=== PATIENT | male | born 1965 | race Caucasian/White ===

== ENCOUNTER → 2019-12-08 | Outpatient (CLI) | payer OTHER | END | disposition home or self-care (01) | LOC: LAB 09:09 | DX: R79.89 Other specified abnormal findings of blood chemistry (principal) ==

== ENCOUNTER 2021-06-27 07:51 | Inpatient (IN) | payer OTHER ==
[2021-06-27] VITALS (8 sets, daily range): BP systolic 122–163; BP diastolic 50–86
[~2021-06-27] VITALS: Ht 182.9 cm; Wt 89.8 kg
[2021-06-27 08:45] LABS: BASO % 0.2 % (0.0-1.0); EOS # 0.1 10*3/uL (0.0-0.4); EOS % 0.7 % (1.0-4.0); HEMATOCRIT 38.3 % (42.0-52.0); LYMPH # 0.7 10*3/uL (1.3-4.4); LYMPH % 8.2 % (27.0-41.0); MEAN CELL VOLUME 88.5 fl (80.0-94.0); MEAN CORPUSCULAR HGB 31.2 pg (27.0-31.0); MEAN CORPUSCULAR HGB CONC 35.2 g/dl (33.0-37.0); MEAN PLATELET VOLUME 9.2 fl (9.6-12.3); MONO # 1.3 10*3/uL (0.1-1.0); NEUT # 6.5 10*3/uL (2.3-7.9); NEUT % 75.1 % (47.0-73.0); PLATELET COUNT AUTOMATED 190 10*3/uL (130-400); RED BLOOD COUNT 4.33 10*6/uL (4.50-5.90); RED CELL DISTRI WIDTH 12.2 % (0-14.5); WHITE BLOOD COUNT 8.6 10*3/uL (4.8-10.8)
[2021-06-27 08:59] LABS: ALKALINE PHOSPHATASE 108 U/L (45-117); BUN 17 mg/dl (7-24); CHLORIDE 103 mmol/L (98-107); CREATININE 0.92 mg/dL (0.70-1.30); LIPASE 51 U/L (73-393); POTASSIUM 3.3 mmol/L (3.5-5.1); SGOT/AST 6 IU/L (3-35); SGPT/ALT 16 U/L (12-78); SODIUM 135 mmol/L (136-145); TOTAL PROTEIN 7.4 gm/dL (6.4-8.2)
[2021-06-27 09:02] LABS: TROPONIN I < 0.015 ng/ml (<0.045)
[2021-06-28] VITALS: BP 144/62
[2021-06-28 06:16] LABS: BASO % 0.3 % (0.0-1.0); EOS # 0.1 10*3/uL (0.0-0.4); EOS % 0.7 % (1.0-4.0); HEMATOCRIT 30.5 % (42.0-52.0); LYMPH # 1.2 10*3/uL (1.3-4.4); LYMPH % 17.5 % (27.0-41.0); MEAN CELL VOLUME 89.7 fl (80.0-94.0); MEAN CORPUSCULAR HGB 31.2 pg (27.0-31.0); MEAN CORPUSCULAR HGB CONC 34.8 g/dl (33.0-37.0); MEAN PLATELET VOLUME 9.2 fl (9.6-12.3); MONO # 0.9 10*3/uL (0.1-1.0); MONO % 12.7 % (3.0-9.0); NEUT # 4.6 10*3/uL (2.3-7.9); NEUT % 67.3 % (47.0-73.0); PLATELET COUNT AUTOMATED 199 10*3/uL (130-400); RED CELL DISTRI WIDTH 12.6 % (0-14.5); WHITE BLOOD COUNT 6.9 10*3/uL (4.8-10.8)
[2021-06-28 06:24] LABS: CHLORIDE 109 mmol/L (98-107); POTASSIUM 3.1 mmol/L (3.5-5.1); SODIUM 139 mmol/L (136-145)
[2021-06-28 06:36] LABS: ALBUMIN 2.1 gm/dl (3.1-4.5); ALKALINE PHOSPHATASE 82 U/L (45-117); BUN 18 mg/dl (7-24); CHOLESTEROL 112 mg/dL (<200); CREATININE 0.74 mg/dL (0.70-1.30); LDL CHOLESTEROL 56 mg/dL (9-159); SGOT/AST 11 IU/L (3-35); SGPT/ALT 15 U/L (12-78); TOTAL PROTEIN 5.9 gm/dL (6.4-8.2); TRIGLYCERIDES 205 mg/dl (<150)
[2021-06-28 08:00] VITALS: BP 119/55
[2021-06-28 12:00] VITALS: BP 123/61
[2021-06-28] MEDS ORDERED: CEPHALEXIN500 M1 PO ×3 (13:24→13:29)
[2021-06-28] MEDS ORDERED: HUMALOG100 UNIT/1 SC (13:28)
[2021-06-28] MEDS ORDERED: ONETOUCH LANCE1 EACH MC (13:28)
[2021-06-28] MEDS ORDERED: GLUCTESTSTRIP DEVI (13:28)
[2021-06-28] MEDS ORDERED: LANTUS SOL100 UNIT/1 SC (13:28)
== END 2021-06-28 14:39 | disposition home or self-care (01) | DRG 720 ==
LOC: ED 07:51 → EDHOLD 10:31 → 5E 10:31
PROVIDERS: Emergency Medicine; Internal Medicine; ADMIT Student in an Organized Health Care Education/Training Program; ATTEND Student in an Organized Health Care Education/Training Program
PROC: 0Y9D0ZZ Drainage of Left Upper Leg, Open Approach (ICD-10-PCS; principal; 2021-06-27)
DX: A41.9 Sepsis, unspecified organism (principal); L02.416 Cutaneous abscess of left lower limb; E44.0 Moderate protein-calorie malnutrition; K74.60 Unspecified cirrhosis of liver; L02.214 Cutaneous abscess of groin; I10 Essential (primary) hypertension; E87.6 Hypokalemia; R79.82 Elevated C-reactive protein (CRP); E66.9 Obesity, unspecified; B95.1 Streptococcus, group B, as the cause of diseases classified elsewhere; E11.65 Type 2 diabetes mellitus with hyperglycemia; R01.1 Cardiac murmur, unspecified; D64.9 Anemia, unspecified; R16.1 Splenomegaly, not elsewhere classified; Z88.0 Allergy status to penicillin; Z82.3 Family history of stroke; Z83.3 Family history of diabetes mellitus; Z82.49 Family history of ischemic heart disease and other diseases of the circulatory system; Z68.26 Body mass index [BMI] 26.0-26.9, adult

== ENCOUNTER → 2021-07-02 | Outpatient (CLI) | payer OTHER ==
[~2021-07-02] MED LIST: CEPHALEXIN500 M1 PO; GLUCTESTSTRIP DEVI; HUMALOG100 UNIT/1 SC; LANTUS SOL100 UNIT/1 SC; ONETOUCH LANCE1 EACH MC
== END ==
LOC: WOUNDCARE 01:25
PROVIDERS: ATTEND Surgery
DX: T81.89XA Other complications of procedures, not elsewhere classified, initial encounter (principal); L02.416 Cutaneous abscess of left lower limb; M72.6 Necrotizing fasciitis; E11.9 Type 2 diabetes mellitus without complications; I10 Essential (primary) hypertension; Z98.890 Other specified postprocedural states; Z87.891 Personal history of nicotine dependence; Y83.8 Other surgical procedures as the cause of abnormal reaction of the patient, or of later complication, without mention of misadventure at the time of the procedure; Y92.238 Other place in hospital as the place of occurrence of the external cause

== ENCOUNTER → 2021-07-04 | Outpatient (CLI) | payer OTHER | END | disposition home or self-care (01) | LOC: RAD 07:15 | PROVIDERS: ATTEND Family Medicine | DX: M50.322 Other cervical disc degeneration at C5-C6 level (principal); M50.323 Other cervical disc degeneration at C6-C7 level; M48.02 Spinal stenosis, cervical region ==

== ENCOUNTER → 2021-07-09 | Outpatient (CLI) | payer OTHER | LOC: WOUNDCARE 01:49 | PROVIDERS: ATTEND Nurse Practitioner | DX: T81.89XD Other complications of procedures, not elsewhere classified, subsequent encounter (principal); L02.416 Cutaneous abscess of left lower limb; M72.6 Necrotizing fasciitis; E11.9 Type 2 diabetes mellitus without complications; I10 Essential (primary) hypertension; Z98.890 Other specified postprocedural states; Z87.891 Personal history of nicotine dependence; Y83.8 Other surgical procedures as the cause of abnormal reaction of the patient, or of later complication, without mention of misadventure at the time of the procedure; Y92.238 Other place in hospital as the place of occurrence of the external cause ==

== ENCOUNTER → 2021-07-10 | Outpatient (CLI) | payer OTHER ==
[2021-07-10 09:08] LABS: BASO % 0.5 % (0.0-1.0); EOS # 0.1 10*3/uL (0.0-0.4); EOS % 1.8 % (1.0-4.0); HEMATOCRIT 38.3 % (42.0-52.0); LYMPH # 1.2 10*3/uL (1.3-4.4); MEAN CELL VOLUME 89.3 fl (80.0-94.0); MEAN CORPUSCULAR HGB 30.8 pg (27.0-31.0); MEAN CORPUSCULAR HGB CONC 34.5 g/dl (33.0-37.0); MEAN PLATELET VOLUME 8.6 fl (9.6-12.3); MONO # 0.3 10*3/uL (0.1-1.0); MONO % 8.5 % (3.0-9.0); NEUT # 2.2 10*3/uL (2.3-7.9); NEUT % 56.9 % (47.0-73.0); PLATELET COUNT AUTOMATED 268 10*3/uL (130-400); RED BLOOD COUNT 4.29 10*6/uL (4.50-5.90); RED CELL DISTRI WIDTH 12.7 % (0-14.5); RETICULOCYTE % 5.12 % (0.50-2.50); WHITE BLOOD COUNT 3.9 10*3/uL (4.8-10.8)
[2021-07-10 09:15] LABS: BILIRUBIN Negative (Negative); BLOOD Negative (Negative); CLARITY Clear (Clear); COLOR Yellow (Yellow); GLUCOSE 3+ (Negative); KETONE Negative (Negative); LEUKO ESTERASE Negative (Negative); NITRITE Negative (Negative); PH 6.5 (4.5-8.0); SPECIFIC GRAVITY 1.025 (1.001-1.030); UROBILINOGEN 0.2 E.U./dl (0.0-1.0)
[2021-07-10 09:24] LABS: ALBUMIN 3.1 gm/dl (3.1-4.5); ALKALINE PHOSPHATASE 93 U/L (45-117); BUN 9 mg/dl (7-24); CHLORIDE 100 mmol/L (98-107); CHOLESTEROL 177 mg/dL (<200); CREATININE 0.74 mg/dL (0.70-1.30); GAMMA GLUTAMYL TRANSPEPTIDASE 173 U/L (15-85); IRON 76 ug/dL (65-175); LDL CHOLESTEROL 62 mg/dL (9-159); POTASSIUM 3.7 mmol/L (3.5-5.1); SGOT/AST 11 IU/L (3-35); SGPT/ALT 25 U/L (12-78); SODIUM 137 mmol/L (136-145); TOTAL IRON BINDING CAPACITY 313 ug/dl (250-450); TRIGLYCERIDES 399 mg/dl (<150)
[2021-07-10 09:57] LABS: BACTERIA 1+; COARSE GRANULAR CAST 0-2
[2021-07-10 09:59] LABS: VITAMIN D, 25-HYDROXY 35.6 ng/mL (30-100)
[2021-07-10 10:00] LABS: FERRITIN 189.5 ng/mL (22.0-322.0)
== END | disposition home or self-care (01) ==
LOC: LAB 08:31
PROVIDERS: ATTEND Family Medicine
DX: R53.83 Other fatigue (principal); R79.89 Other specified abnormal findings of blood chemistry; E78.5 Hyperlipidemia, unspecified; E10.9 Type 1 diabetes mellitus without complications; E55.9 Vitamin D deficiency, unspecified

== ENCOUNTER → 2021-07-16 | Outpatient (CLI) | payer OTHER | LOC: WOUNDCARE 00:42 | PROVIDERS: ATTEND Surgery | DX: T81.89XD Other complications of procedures, not elsewhere classified, subsequent encounter (principal); L02.416 Cutaneous abscess of left lower limb; M72.6 Necrotizing fasciitis; I10 Essential (primary) hypertension; E11.9 Type 2 diabetes mellitus without complications; Z98.890 Other specified postprocedural states; Z87.891 Personal history of nicotine dependence; Y83.8 Other surgical procedures as the cause of abnormal reaction of the patient, or of later complication, without mention of misadventure at the time of the procedure ==

== ENCOUNTER → 2021-07-19 | Outpatient (CLI) | payer OTHER ==
[2021-07-20 05:06] LABS: HEPATITIS B SURFACE AB Non Reactive (.)
[2021-07-21 15:06] LABS: HEPATITIS B QNT HBV DNA not detected IU/mL (.)
== END | disposition home or self-care (01) ==
LOC: RESCLI 00:32
PROVIDERS: Student in an Organized Health Care Education/Training Program; ATTEND Internal Medicine
DX: R53.83 Other fatigue (principal); M72.6 Necrotizing fasciitis; L02.416 Cutaneous abscess of left lower limb; R20.2 Paresthesia of skin; Z12.5 Encounter for screening for malignant neoplasm of prostate; I10 Essential (primary) hypertension; E10.36 Type 1 diabetes mellitus with diabetic cataract; K74.60 Unspecified cirrhosis of liver; K59.00 Constipation, unspecified; E10.65 Type 1 diabetes mellitus with hyperglycemia; E78.1 Pure hyperglyceridemia; Z88.0 Allergy status to penicillin; Z98.890 Other specified postprocedural states; Z79.899 Other long term (current) drug therapy

== ENCOUNTER → 2021-07-23 | Outpatient (CLI) | payer OTHER | LOC: WOUNDCARE 03:27 | PROVIDERS: ATTEND Surgery | DX: T81.89XD Other complications of procedures, not elsewhere classified, subsequent encounter (principal); M72.6 Necrotizing fasciitis; L02.416 Cutaneous abscess of left lower limb; I10 Essential (primary) hypertension; E11.9 Type 2 diabetes mellitus without complications; Z98.890 Other specified postprocedural states; Z87.891 Personal history of nicotine dependence; Y83.8 Other surgical procedures as the cause of abnormal reaction of the patient, or of later complication, without mention of misadventure at the time of the procedure ==

== ENCOUNTER → 2021-07-26 | Outpatient (CLI) | payer OTHER | END | disposition home or self-care (01) | LOC: MRI 07:28 | PROVIDERS: ATTEND Family Medicine | DX: M19.011 Primary osteoarthritis, right shoulder (principal); M77.8 Other enthesopathies, not elsewhere classified ==

== ENCOUNTER → 2021-08-02 | Outpatient (CLI) | payer OTHER | LOC: WOUNDCARE 00:11 | PROVIDERS: ATTEND Nurse Practitioner | DX: T81.89XD Other complications of procedures, not elsewhere classified, subsequent encounter (principal); M72.6 Necrotizing fasciitis; L02.416 Cutaneous abscess of left lower limb; I10 Essential (primary) hypertension; E11.9 Type 2 diabetes mellitus without complications; Z98.890 Other specified postprocedural states; Z87.891 Personal history of nicotine dependence; Y83.8 Other surgical procedures as the cause of abnormal reaction of the patient, or of later complication, without mention of misadventure at the time of the procedure ==

== ENCOUNTER → 2021-08-09 | Outpatient (CLI) | payer OTHER | LOC: WOUNDCARE 02:05 | PROVIDERS: ATTEND Nurse Practitioner | DX: T81.89XD Other complications of procedures, not elsewhere classified, subsequent encounter (principal); M72.6 Necrotizing fasciitis; L02.416 Cutaneous abscess of left lower limb; I10 Essential (primary) hypertension; E11.9 Type 2 diabetes mellitus without complications; Z98.890 Other specified postprocedural states; Z87.891 Personal history of nicotine dependence; Y83.8 Other surgical procedures as the cause of abnormal reaction of the patient, or of later complication, without mention of misadventure at the time of the procedure ==

== ENCOUNTER → 2021-08-13 | Outpatient (CLI) | payer OTHER | END | disposition home or self-care (01) | LOC: RAD 06:56 | PROVIDERS: ATTEND Family Medicine | DX: M19.021 Primary osteoarthritis, right elbow (principal); M25.721 Osteophyte, right elbow; M77.8 Other enthesopathies, not elsewhere classified ==

== ENCOUNTER → 2021-08-14 | Outpatient (CLI) | payer OTHER | LOC: WOUNDCARE 01:15 | PROVIDERS: ATTEND Nurse Practitioner | DX: T81.89XD Other complications of procedures, not elsewhere classified, subsequent encounter (principal); L02.416 Cutaneous abscess of left lower limb; M72.6 Necrotizing fasciitis; I10 Essential (primary) hypertension; E11.9 Type 2 diabetes mellitus without complications; Z98.890 Other specified postprocedural states; Z87.891 Personal history of nicotine dependence; Y83.8 Other surgical procedures as the cause of abnormal reaction of the patient, or of later complication, without mention of misadventure at the time of the procedure ==

== ENCOUNTER → 2021-08-26 | Outpatient (CLI) | payer OTHER | LOC: WOUNDCARE 01:21 | PROVIDERS: ATTEND Nurse Practitioner Family | DX: T81.89XD Other complications of procedures, not elsewhere classified, subsequent encounter (principal); L02.416 Cutaneous abscess of left lower limb; M72.6 Necrotizing fasciitis; I10 Essential (primary) hypertension; E11.9 Type 2 diabetes mellitus without complications; Z98.890 Other specified postprocedural states; Z79.891 Long term (current) use of opiate analgesic; Y83.8 Other surgical procedures as the cause of abnormal reaction of the patient, or of later complication, without mention of misadventure at the time of the procedure ==

== ENCOUNTER → 2021-09-02 | Outpatient (CLI) | payer OTHER | LOC: WOUNDCARE 01:06 | PROVIDERS: ATTEND Nurse Practitioner Family | DX: T81.89XD Other complications of procedures, not elsewhere classified, subsequent encounter (principal); L02.416 Cutaneous abscess of left lower limb; M72.6 Necrotizing fasciitis; I10 Essential (primary) hypertension; E11.9 Type 2 diabetes mellitus without complications; Z98.890 Other specified postprocedural states; Z87.891 Personal history of nicotine dependence; Y83.8 Other surgical procedures as the cause of abnormal reaction of the patient, or of later complication, without mention of misadventure at the time of the procedure ==

== ENCOUNTER → 2021-12-18 | Outpatient (CLI) | payer OTHER | END | disposition home or self-care (01) | LOC: RESCLI 00:53 | PROVIDERS: ATTEND Student in an Organized Health Care Education/Training Program | DX: E10.65 Type 1 diabetes mellitus with hyperglycemia (principal); E78.1 Pure hyperglyceridemia; K21.9 Gastro-esophageal reflux disease without esophagitis; K74.60 Unspecified cirrhosis of liver; I10 Essential (primary) hypertension; Z79.899 Other long term (current) drug therapy ==

== ENCOUNTER → 2021-12-19 | Outpatient (CLI) | payer OTHER ==
[2021-12-19 07:48] LABS: BASO % 0.5 % (0.0-1.0); EOS # 0.2 10*3/uL (0.0-0.4); EOS % 3.7 % (1.0-4.0); HEMATOCRIT 34.1 % (42.0-52.0); LYMPH # 1.5 10*3/uL (1.3-4.4); LYMPH % 35.1 % (27.0-41.0); MEAN CORPUSCULAR HGB 31.6 pg (27.0-31.0); MEAN CORPUSCULAR HGB CONC 36.4 g/dl (33.0-37.0); MEAN PLATELET VOLUME 9.1 fl (9.6-12.3); MONO # 0.4 10*3/uL (0.1-1.0); MONO % 10.2 % (3.0-9.0); NEUT # 2.2 10*3/uL (2.3-7.9); PLATELET COUNT AUTOMATED 169 10*3/uL (130-400); RED BLOOD COUNT 3.92 10*6/uL (4.50-5.90); RED CELL DISTRI WIDTH 13.2 % (0-14.5); WHITE BLOOD COUNT 4.3 10*3/uL (4.8-10.8)
[2021-12-19 12:44] LABS: ALBUMIN 3.6 gm/dl (3.1-4.5); BUN 14 mg/dl (7-24); CHLORIDE 108 mmol/L (98-107); CHOLESTEROL 103 mg/dL (<200); POTASSIUM 3.1 mmol/L (3.5-5.1); SGOT/AST 17 IU/L (3-35); SODIUM 140 mmol/L (136-145); TRIGLYCERIDES 344 mg/dl (<150)
[2021-12-19 12:49] LABS: ALKALINE PHOSPHATASE 76 U/L (45-117); LDL CHOLESTEROL 9 mg/dL (9-159); SGPT/ALT 26 U/L (12-78)
[2021-12-20 13:06] LABS: CREATININE,URINE 202.8 mg/dL (Not Estab.)
[2021-12-21 16:07] LABS: GLUTAMIC ACID DECARB AB <5.0 U/mL (0.0-5.0)
== END | disposition home or self-care (01) ==
LOC: LAB 07:24
PROVIDERS: Internal Medicine; ATTEND Internal Medicine
DX: E10.65 Type 1 diabetes mellitus with hyperglycemia (principal)

== ENCOUNTER → 2021-12-25 | Outpatient (CLI) | payer OTHER | END | disposition home or self-care (01) | LOC: RESCLI 00:30 | PROVIDERS: ATTEND Emergency Medicine | DX: E11.65 Type 2 diabetes mellitus with hyperglycemia (principal); I10 Essential (primary) hypertension; Z79.4 Long term (current) use of insulin; Z79.899 Other long term (current) drug therapy; Z79.82 Long term (current) use of aspirin; Z98.890 Other specified postprocedural states; Z88.0 Allergy status to penicillin ==

== ENCOUNTER → 2022-01-13 | Day surgery (SDC) | payer OTHER ==
[~2022-01-13] VITALS: Ht 182.8 cm; Wt 108.9 kg
[~2022-01-13] MED LIST changes: +HUMALOG100 UNIT/2 SQ; +ISOSORBIDE DINI30 MG PO; +LIPITOR40 MG PO; +METOPROLOL SUCC50 M2 PO; +PANTOPRAZOLE SO40 MG PO; +PERCOCET 5-3251 EACH PO; +ZESTRIL10 MG PO
[2022-01-13 07:44] VITALS: BP 190/100
[2022-01-13 09:12] VITALS: BP 160/86
[2022-01-13 09:27] VITALS: BP 154/89
[2022-01-13 09:43] VITALS: BP 156/84
== END | disposition home or self-care (01) ==
LOC: SDC 01-09 08:45
PROVIDERS: ATTEND Surgery
DX: L72.0 Epidermal cyst (principal); I10 Essential (primary) hypertension; K21.9 Gastro-esophageal reflux disease without esophagitis; E10.9 Type 1 diabetes mellitus without complications; Z89.422 Acquired absence of other left toe(s); Z89.421 Acquired absence of other right toe(s); Z79.899 Other long term (current) drug therapy; Z20.822 Contact with and (suspected) exposure to COVID-19

== ENCOUNTER → 2022-01-23 | Outpatient (CLI) | payer OTHER | END | disposition home or self-care (01) | LOC: CARD 01-09 10:00 | PROVIDERS: ATTEND Internal Medicine Cardiovascular Disease | DX: Z01.818 Encounter for other preprocedural examination (principal); R06.02 Shortness of breath; I10 Essential (primary) hypertension; R07.9 Chest pain, unspecified; Z82.49 Family history of ischemic heart disease and other diseases of the circulatory system ==

== ENCOUNTER → 2022-09-16 | Outpatient (CLI) | payer MEDICAID ==
[2022-09-16 08:27] LABS: BASO % 0.4 % (0.0-1.0); EOS # 0.1 10*3/uL (0.0-0.4); EOS % 1.6 % (1.0-4.0); LYMPH # 1.7 10*3/uL (1.3-4.4); LYMPH % 33.1 % (27.0-41.0); MEAN CELL VOLUME 89.9 fl (80.0-94.0); MEAN CORPUSCULAR HGB 31.3 pg (27.0-31.0); MEAN CORPUSCULAR HGB CONC 34.8 g/dl (33.0-37.0); MONO # 0.5 10*3/uL (0.1-1.0); MONO % 9.5 % (3.0-9.0); NEUT # 2.8 10*3/uL (2.3-7.9); NEUT % 54.8 % (47.0-73.0); PLATELET COUNT AUTOMATED 195 10*3/uL (130-400); RED BLOOD COUNT 4.67 10*6/uL (4.50-5.90); RED CELL DISTRI WIDTH 12.7 % (0-14.5); RETICULOCYTE % 3.54 % (0.50-2.50)
[2022-09-16 08:39] LABS: BILIRUBIN Negative (Negative); BLOOD Negative (Negative); CLARITY Clear (Clear); COLOR Yellow (Yellow); GLUCOSE 3+ (Negative); KETONE Trace (Negative); LEUKO ESTERASE Negative (Negative); NITRITE Negative (Negative); SPECIFIC GRAVITY >= 1.030 (1.001-1.030)
[2022-09-16 09:03] LABS: BUN 19 mg/dl (7-24); CREATININE 1.01 mg/dL (0.70-1.30)
[2022-09-16 09:04] LABS: ALKALINE PHOSPHATASE 83 U/L (45-117); CHLORIDE 105 mmol/L (98-107); CHOLESTEROL 127 mg/dL (<200); LDL CHOLESTEROL 42 mg/dL (9-159); POTASSIUM 4.4 mmol/L (3.5-5.1); SGOT/AST 15 IU/L (3-35); SGPT/ALT 34 U/L (12-78); SODIUM 138 mmol/L (136-145); TOTAL PROTEIN 7.5 gm/dL (6.4-8.2); TRIGLYCERIDES 229 mg/dl (<150)
[2022-09-16 09:05] LABS: GAMMA GLUTAMYL TRANSPEPTIDASE 221 U/L (15-85); IRON 78 ug/dL (65-175); T3 UPTAKE 35 % (31-39); THYROXINE (T4) TOTAL 9.8 ug/dl (4.5-12.1)
[2022-09-16 14:15] LABS: VITAMIN D, 25-HYDROXY 20.6 ng/mL (30-100)
[2022-09-16 15:51] LABS: FERRITIN 61.6 ng/mL (22.0-322.0)
== END | disposition home or self-care (01) ==
LOC: LAB 08:06
PROVIDERS: ATTEND Family Medicine
DX: E78.5 Hyperlipidemia, unspecified (principal); E55.9 Vitamin D deficiency, unspecified; R79.89 Other specified abnormal findings of blood chemistry; R53.83 Other fatigue; R74.8 Abnormal levels of other serum enzymes

== ENCOUNTER → 2022-10-13 | Outpatient (CLI) | payer OTHER, MEDICAID ==
[2022-10-13 08:09] LABS: ALKALINE PHOSPHATASE 77 U/L (46-116); BUN 12 mg/dl (9-23); CHLORIDE 102 mmol/L (98-107); CPK 116 U/L (34-171); CREATININE 0.91 mg/dL (0.70-1.30); POTASSIUM 3.6 mmol/L (3.4-5.1); SGPT/ALT 25 U/L (10-49); SODIUM 138 mmol/L (136-145); TRIGLYCERIDES 159 mg/dl (<150)
[2022-10-13 08:10] LABS: CHOLESTEROL 96 mg/dL (<200); GAMMA GLUTAMYL TRANSPEPTIDASE 166 U/L (0-73); LDL CHOLESTEROL 33 mg/dL (9-159); TOTAL PROTEIN 7.1 gm/dL (6.0-8.0)
[2022-10-14 07:03] LABS: HBSAG Negative (Negative); HEP B CORE AB, IGM Negative (Negative); HEPATITIS C ANTIBODY <0.1 (0.0-0.9)
== END | disposition home or self-care (01) ==
LOC: LAB 07:17
PROVIDERS: ATTEND Family Medicine
DX: E78.2 Mixed hyperlipidemia (principal); R79.89 Other specified abnormal findings of blood chemistry; R53.83 Other fatigue; R74.8 Abnormal levels of other serum enzymes

== ENCOUNTER → 2022-11-06 | Outpatient (CLI) | payer OTHER, MEDICAID | END | disposition home or self-care (01) | LOC: US 00:30 | PROVIDERS: ATTEND Family Medicine | DX: K76.0 Fatty (change of) liver, not elsewhere classified (principal); R16.1 Splenomegaly, not elsewhere classified; N28.1 Cyst of kidney, acquired ==

== ENCOUNTER → 2023-01-02 | Outpatient (CLI) | payer OTHER, MEDICAID ==
[2023-01-02 13:44] LABS: LIPASE 30 U/L (12-53)
== END | disposition home or self-care (01) ==
LOC: LAB 13:08
PROVIDERS: ATTEND Nurse Practitioner Family
DX: I10 Essential (primary) hypertension (principal); R10.12 Left upper quadrant pain

== ENCOUNTER → 2023-01-29 | Outpatient (CLI) | payer OTHER, MEDICAID | END | disposition home or self-care (01) | LOC: RAD 15:07 | PROVIDERS: ATTEND Family Medicine | DX: M19.011 Primary osteoarthritis, right shoulder (principal) ==

== ENCOUNTER → 2023-02-11 | Outpatient (CLI) | payer OTHER, MEDICAID ==
[2023-02-11 10:25] LABS: BILIRUBIN Negative (Negative); BLOOD Negative (Negative); CLARITY Clear (Clear); COLOR Yellow (Yellow); GLUCOSE 3+ (Negative); KETONE Trace (Negative); LEUKO ESTERASE Negative (Negative); NITRITE Negative (Negative); PH 6.5 (4.5-8.0); SPECIFIC GRAVITY >= 1.030 (1.001-1.030)
[2023-02-11 10:46] LABS: ALKALINE PHOSPHATASE 79 U/L (46-116); BUN 11 mg/dl (9-23); CHLORIDE 100 mmol/L (98-107); POTASSIUM 3.3 mmol/L (3.4-5.1); SGPT/ALT 20 U/L (10-49); THYROID STIM HORMONE (HS) 3.526 uIU/ml (0.550-4.780); TOTAL PROTEIN 7.4 gm/dL (6.0-8.0)
[2023-02-11 10:48] LABS: T3 UPTAKE 24.9 % (22.4-36.7); THYROXINE (T4) TOTAL 9.1 ug/dl (4.5-10.9)
[2023-02-11 11:13] LABS: BASO % 0.5 % (0.0-1.0); EOS # 0.1 10*3/uL (0.0-0.4); EOS % 2.1 % (1.0-4.0); HEMATOCRIT 42.1 % (42.0-52.0); LYMPH # 1.3 10*3/uL (1.3-4.4); MEAN CELL VOLUME 90.1 fl (80.0-94.0); MEAN CORPUSCULAR HGB 31.7 pg (27.0-31.0); MEAN CORPUSCULAR HGB CONC 35.2 g/dl (33.0-37.0); MEAN PLATELET VOLUME 9.4 fl (9.6-12.3); MONO # 0.4 10*3/uL (0.1-1.0); MONO % 9.2 % (3.0-9.0); NEUT # 2.6 10*3/uL (2.3-7.9); PLATELET COUNT AUTOMATED 176 10*3/uL (130-400); RED BLOOD COUNT 4.67 10*6/uL (4.50-5.90); RED CELL DISTRI WIDTH 12.5 % (0-14.5); RETICULOCYTE % 3.37 % (0.50-2.50); WHITE BLOOD COUNT 4.4 10*3/uL (4.8-10.8)
[2023-02-11 11:17] LABS: CALCIUM OXALATE CRYSTALS 1+; EPITHELIAL CELLS 0-2; VITAMIN D, 25-HYDROXY 49.2 ng/mL (30-100)
[2023-02-12 04:06] LABS: ALPHA-1-ANTITRYPSIN, SERUM 160 mg/dL (101-187)
[2023-02-12 06:07] LABS: HEPATITIS B SURFACE AB Non Reactive (.); HEPATITIS B SURFACE AG Negative (Negative)
[2023-02-12 14:08] LABS: ANTI-SMOOTH MUSCLE ANTIBODY 32 Units (0-19)
[2023-02-12 15:07] LABS: t-TRANSGLUTAMINASE (tTG) IGA <2 U/mL (0-3); t-TRANSGLUTAMINASE (tTG) IgG 2 U/mL (0-5)
== END | disposition home or self-care (01) ==
LOC: LAB 09:05
PROVIDERS: Family Medicine; Nurse Practitioner Family; ATTEND Internal Medicine Cardiovascular Disease
DX: E78.5 Hyperlipidemia, unspecified (principal); Z12.5 Encounter for screening for malignant neoplasm of prostate; B18.1 Chronic viral hepatitis B without delta-agent; B18.2 Chronic viral hepatitis C; R10.84 Generalized abdominal pain; R19.8 Other specified symptoms and signs involving the digestive system and abdomen; R19.4 Change in bowel habit; R53.83 Other fatigue; R79.89 Other specified abnormal findings of blood chemistry; R74.8 Abnormal levels of other serum enzymes; E55.9 Vitamin D deficiency, unspecified

== ENCOUNTER → 2023-03-23 | Outpatient (CLI) | payer OTHER, MEDICAID | END | disposition home or self-care (01) | LOC: LAB 07:23 | PROVIDERS: ATTEND Family Medicine | DX: R79.89 Other specified abnormal findings of blood chemistry (principal); R53.83 Other fatigue; E78.5 Hyperlipidemia, unspecified ==

== ENCOUNTER → 2023-06-12 | Outpatient (CLI) | payer MEDICARE, MEDICAID ==
[2023-06-12 08:15] LABS: BILIRUBIN Negative (Negative); BLOOD Negative (Negative); CLARITY Clear (Clear); COLOR Yellow (Yellow); GLUCOSE Negative (Negative); KETONE Negative (Negative); LEUKO ESTERASE Negative (Negative); NITRITE Negative (Negative); PH 6.5 (4.5-8.0); SPECIFIC GRAVITY 1.015 (1.001-1.030)
[2023-06-12 08:34] LABS: BACTERIA 2+; EPITHELIAL CELLS 0-2; MUCOUS 1+
[2023-06-12 08:47] LABS: TOTAL PROTEIN 6.7 gm/dL (6.0-8.0)
[2023-06-12 08:50] LABS: BUN 9 mg/dl (9-23); CHLORIDE 107 mmol/L (98-107); FREE T4 1.01 ng/dl (0.89-1.76); POTASSIUM 3.7 mmol/L (3.4-5.1)
== END | disposition home or self-care (01) ==
LOC: LAB 07:28
PROVIDERS: Family Medicine; ATTEND Internal Medicine
DX: E11.65 Type 2 diabetes mellitus with hyperglycemia (principal); E55.9 Vitamin D deficiency, unspecified; E78.5 Hyperlipidemia, unspecified; E04.9 Nontoxic goiter, unspecified

== ENCOUNTER → 2024-01-05 | Outpatient (CLI) | payer MEDICARE, MEDICAID ==
[2024-01-05 07:39] LABS: BASO % 0.2 % (0.0-1.0); EOS # 0.1 10*3/uL (0.0-0.4); EOS % 2.2 % (1.0-4.0); LYMPH # 1.6 10*3/uL (1.3-4.4); LYMPH % 40.1 % (27.0-41.0); MEAN CELL VOLUME 91.3 fl (80.0-94.0); MEAN CORPUSCULAR HGB 30.8 pg (27.0-31.0); MEAN CORPUSCULAR HGB CONC 33.8 g/dl (33.0-37.0); MEAN PLATELET VOLUME 9.3 fl (9.6-12.3); MONO # 0.5 10*3/uL (0.1-1.0); NEUT # 1.8 10*3/uL (2.3-7.9); NEUT % 45.3 % (47.0-73.0); PLATELET COUNT AUTOMATED 155 10*3/uL (130-400); RED BLOOD COUNT 4.38 10*6/uL (4.50-5.90); RED CELL DISTRI WIDTH 13.3 % (0-14.5)
[2024-01-05 07:56] LABS: BILIRUBIN Negative (Negative); BLOOD Negative (Negative); CLARITY Clear (Clear); COLOR Yellow (Yellow); GLUCOSE Negative (Negative); KETONE Negative (Negative); LEUKO ESTERASE Negative (Negative); NITRITE Negative (Negative); PH 6.5 (4.5-8.0)
[2024-01-05 08:19] LABS: ALKALINE PHOSPHATASE 55 U/L (46-116); BUN 12 mg/dl (9-23); CHLORIDE 104 mmol/L (98-107); CHOLESTEROL 102 mg/dL (<200); GAMMA GLUTAMYL TRANSPEPTIDASE 61 U/L (0-73); LDL CHOLESTEROL 45 mg/dL (9-159); POTASSIUM 3.4 mmol/L (3.4-5.1); SGPT/ALT 19 U/L (5-49); T3 UPTAKE 28.7 % (22.4-36.7); THYROXINE (T4) TOTAL 7.1 ug/dl (4.5-10.9); TRIGLYCERIDES 137 mg/dl (<150)
[2024-01-05 08:28] LABS: VITAMIN D, 25-HYDROXY 35.9 ng/mL (30-100)
[2024-01-05 09:27] LABS: CALCIUM OXALATE CRYSTALS Trace; RBC 0-2 rbc/hpf (0-2); WBC 0-2 wbc/hpf (0-5)
== END | disposition home or self-care (01) ==
LOC: LAB 07:07
PROVIDERS: ATTEND Family Medicine
DX: R79.89 Other specified abnormal findings of blood chemistry (principal); R53.83 Other fatigue; E78.5 Hyperlipidemia, unspecified; E55.9 Vitamin D deficiency, unspecified

== ENCOUNTER → 2024-03-29 | Outpatient (CLI) | payer MEDICARE, MEDICAID ==
[2024-03-29 08:24] LABS: BILIRUBIN Negative (Negative); BLOOD Negative (Negative); CLARITY Clear (Clear); COLOR Yellow (Yellow); GLUCOSE 3+ (Negative); KETONE Negative (Negative); LEUKO ESTERASE Negative (Negative); NITRITE Negative (Negative)
[2024-03-29 08:25] LABS: BASO % 0.4 % (0.0-1.0); EOS # 0.1 10*3/uL (0.0-0.4); EOS % 2.4 % (1.0-4.0); HEMATOCRIT 40.5 % (42.0-52.0); LYMPH # 2.1 10*3/uL (1.3-4.4); MEAN CELL VOLUME 90.4 fl (80.0-94.0); MEAN CORPUSCULAR HGB 31.9 pg (27.0-31.0); MEAN CORPUSCULAR HGB CONC 35.3 g/dl (33.0-37.0); MEAN PLATELET VOLUME 9.7 fl (9.6-12.3); MONO # 0.6 10*3/uL (0.1-1.0); MONO % 11.4 % (3.0-9.0); NEUT # 2.1 10*3/uL (2.3-7.9); PLATELET COUNT AUTOMATED 181 10*3/uL (130-400); RED BLOOD COUNT 4.48 10*6/uL (4.50-5.90); RED CELL DISTRI WIDTH 12.9 % (0-14.5); RETICULOCYTE % 3.28 % (0.50-2.50); WHITE BLOOD COUNT 4.9 10*3/uL (4.8-10.8)
[2024-03-29 09:00] LABS: POTASSIUM 3.8 mmol/L (3.4-5.1); THYROXINE (T4) TOTAL 6.2 ug/dl (4.5-10.9); TOTAL PROTEIN 7.3 gm/dL (6.0-8.0); VITAMIN D, 25-HYDROXY 40.1 ng/mL (30-100)
== END | disposition home or self-care (01) ==
LOC: LAB 07:54
PROVIDERS: ATTEND Family Medicine
DX: Z12.5 Encounter for screening for malignant neoplasm of prostate (principal); R79.89 Other specified abnormal findings of blood chemistry; E55.9 Vitamin D deficiency, unspecified; R53.83 Other fatigue; E78.5 Hyperlipidemia, unspecified

== ENCOUNTER → 2024-06-22 | Outpatient (CLI) | payer MEDICARE, MEDICAID ==
[2024-06-22 10:58] LABS: BILIRUBIN Negative (Negative); BLOOD Negative (Negative); CLARITY Clear (Clear); COLOR Yellow (Yellow); GLUCOSE Negative (Negative); KETONE Trace (Negative); LEUKO ESTERASE Trace (Negative); NITRITE Negative (Negative)
[2024-06-22 11:26] LABS: BACTERIA TRACE; HYALINE CAST 0-2; RBC 0-2 rbc/hpf (0-2)
[2024-06-22 11:55] LABS: ALKALINE PHOSPHATASE 55 U/L (46-116); BUN 11 mg/dl (9-23); CHLORIDE 104 mmol/L (98-107); CHOLESTEROL 101 mg/dL (<200); GAMMA GLUTAMYL TRANSPEPTIDASE 56 U/L (0-73); LDL CHOLESTEROL 47 mg/dL (9-159); POTASSIUM 3.5 mmol/L (3.4-5.1); SGPT/ALT 21 U/L (5-49); T3 UPTAKE 33.5 % (22.4-36.7); THYROXINE (T4) TOTAL 8.4 ug/dl (4.5-10.9); TOTAL PROTEIN 6.9 gm/dL (6.0-8.0); TRIGLYCERIDES 117 mg/dl (<150)
[2024-06-22 11:56] LABS: VITAMIN D, 25-HYDROXY 42.8 ng/mL (30-100)
== END | disposition home or self-care (01) ==
LOC: LAB 09:54
PROVIDERS: ATTEND Family Medicine
DX: E10.9 Type 1 diabetes mellitus without complications (principal); R79.89 Other specified abnormal findings of blood chemistry; R53.83 Other fatigue; E55.0 Rickets, active

== ENCOUNTER → 2024-06-23 | Outpatient (CLI) | payer MEDICARE, MEDICAID ==
[2024-06-23 08:58] LABS: BASO % 0.2 % (0.0-1.0); EOS # 0.1 10*3/uL (0.0-0.4); EOS % 1.7 % (1.0-4.0); HEMATOCRIT 37.1 % (42.0-52.0); LYMPH # 1.6 10*3/uL (1.3-4.4); LYMPH % 38.4 % (27.0-41.0); MEAN CELL VOLUME 91.4 fl (80.0-94.0); MEAN CORPUSCULAR HGB 31.5 pg (27.0-31.0); MEAN CORPUSCULAR HGB CONC 34.5 g/dl (33.0-37.0); MEAN PLATELET VOLUME 9.5 fl (9.6-12.3); MONO # 0.4 10*3/uL (0.1-1.0); MONO % 10.2 % (3.0-9.0); NEUT # 2.1 10*3/uL (2.3-7.9); PLATELET COUNT AUTOMATED 175 10*3/uL (130-400); RED BLOOD COUNT 4.06 10*6/uL (4.50-5.90); RED CELL DISTRI WIDTH 13.3 % (0-14.5); RETICULOCYTE % 3.67 % (0.50-2.50); WHITE BLOOD COUNT 4.2 10*3/uL (4.8-10.8)
== END | disposition home or self-care (01) ==
LOC: LAB 02:11
PROVIDERS: ATTEND Family Medicine
DX: E55.9 Vitamin D deficiency, unspecified (principal); E10.9 Type 1 diabetes mellitus without complications; R79.89 Other specified abnormal findings of blood chemistry; R53.83 Other fatigue; E78.5 Hyperlipidemia, unspecified